=== PATIENT | female | born 1990 | race Caucasian/White ===

== ENCOUNTER 2019-08-24 08:33 | Emergency (ER) | payer OTHER ==
[~2019-08-24] VITALS: Ht 162.6 cm; Wt 76.1 kg
--- NOTE | 2019-08-24 08:53 | NUR ---
OUTPATIENT RECEPTIONIST: PT AMBULATORY TO ROOM FROM LOBBY
--- NOTE | 2019-08-24 09:16 | NUR ---
PT PRESENTS TO ED WITH C/O BILATERAL HIP PAIN X 3 DAYS, PT NOTES CHRONIC HIP PAIN D/T HX LYME DZ BUT PAIN HAS BEEN INTOLERABLE FOR LAST 3 DAYS. PT NOTES HX DVT/PE, TAKING ELIQUIS. PT DENIES CP/SOB, BILATERAL DORSALIS PEDIS PULSE IS 4/5 STRENGTH. PT'S SKIN TONE APPROP FOR ETHNICITY TO BILATERAL LE. PT A&OX4, NEURO INTACT. ALL MONITORS IN PLACE. CALL LIGHT IN REACH. PT CHANGED INTO GOWN, BLANKET PROVIDED. KELLY RIGGINS AT BEDSIDE FOR INITIAL ASSESSMENT.
[2019-08-24] MEDS ORDERED: KETOROLAC 30 MG/1 ML IM ONE (09:30)
[2019-08-24] MEDS ORDERED: HYDROmorphone 1 MG/ML, 1ML INJ IM ONE (09:30)
--- NOTE | 2019-08-24 09:40 | NUR ---
US IN PROGRESS, PT INSTRUCTED TO PROVIDE CLEAN CATCH UA WHEN COMPLETE.
[2019-08-24] MEDS ORDERED: KETOROLAC 30 MG/1 ML ONE (09:57)
[2019-08-24] MEDS ORDERED: HYDROmorphone 1 MG/ML, 1ML INJ ONE (09:57)
--- NOTE | 2019-08-24 10:02 | NUR ---
PT MEDICATED WITH DILAUDID PER EMAR, TOLERATED WELL. PT DECLINES TORADOL AT THIS TIME. US STILL IN PROGRESS. ALL MONITORS IN PLACE. PT NSR ON CLEAN OUT DRILLER HELPER, VSS.
--- NOTE | 2019-08-24 10:22 | NUR ---
US STILL IN PROG
--- NOTE | 2019-08-24 10:47 | NUR ---
PT UP TO BATHROOM WITH RN STANDBY, GAIT SLOW AND STEADY. PT REPORTS PAIN IMPROVED S/P DILAUDID. PT REATTACHED TO ALL MONITORS. PT A&O RESPS EVEN AND UNLABORED, NADN. PT AWAITING UA RESULTS AND HIP XRAY.
[2019-08-24 10:56] LABS: HCG UR SG 1.025 (1.003-1.030)
[2019-08-24 10:58] LABS: CULTURE INDICATED? YES; MICROSCOPIC INDICATED
[2019-08-24 12:44] VITALS: BP 103/65
[2019-08-24] MEDS ORDERED: OXYcodone/APAP 10/325MG TABLET ONE (12:51)
--- NOTE | 2019-08-24 12:53 | NUR ---
PT REPORTS BILATERL HIP PAIN LEVEL 6/10, NOT AT GOAL LEVEL. MD RIGGINS NOTIFIED. ORDER RECEIVED FOR PERCOCET. PT MEDICATED PER EMAR, TOLERATED WELL. AWAIIANDRES DC ORDERS AT THIS TIME.
[2019-08-24] MEDS ORDERED: OXYcodone/APAP 10/325MG TABLET PO ONE (13:00)
--- NOTE | 2019-08-24 13:12 | NUR ---
REPORT GIVEN TO DALE GILMAN.
== END 2019-08-24 13:26 | disposition home or self-care (01) ==
LOC: ED 09:00
DX: M25.551 Pain in right hip (principal); M25.552 Pain in left hip; A69.20 Lyme disease, unspecified; Z90.49 Acquired absence of other specified parts of digestive tract
CPT/HCPCS: 73523; 81001; 81025; 87086; 93970; 96372; 99285; J1170; J1885

== ENCOUNTER 2020-01-23 12:43 | Inpatient (IN) | payer OTHER ==
[~2020-01-23] VITALS: Ht 162.6 cm; Wt 72.3 kg
--- NOTE | 2020-01-23 13:11 | NUR ---
TASK RN NOTE: PT PRESENTS TO ED FROM HOME AFTER SZ TODAY. NO HX OF SZ. PER PT, SHE AWOKE NEXT TO THE COUCH AFTER SEEING A BRIGHT RED LIGHT, URINATED ON HERSELF AND HAD VOMITED. PT HAS HX OF MIGRAINE SANTOS'S AND CLOTTING DISORDER. ERMD AWARE THAT PT IS ESTABLISHED WITH A NEUROLOGIST. PT REPORTS SOME NAUSEA AND SANTOS AT THIS TIME. SMALL LAC EVIDENT TO RT SIDE OF TONGUE. ICE CHIPS AND SOCKS PROVIDED. PLAN FOR LABS AND CT. PT VERBALIZES AGREEMENT WITH PLAN.
[2020-01-23 13:21] LABS: BASOPHILS # (AUTO) 0.05 x10^3/uL (0-0.1); BASOPHILS % (AUTO) 1 % (0-1); EOSINOPHILS % (AUTO) 0 % (1-7); LYMPHOCYTES # (AUTO) 0.66 x10^3/uL (1-3.4); LYMPHOCYTES % (AUTO) 7 % (22-44); MD NO; MEAN PLATELET VOLUME 7.8 fL (7.4-10.4); MONOCYTES # (AUTO) 0.42 x10^3/uL (0.2-0.8); MONOCYTES % (AUTO) 5 % (2-9); NEUTROPHILS # (AUTO) 8.11 x10^3/uL (1.8-6.8); NEUTROPHILS % (AUTO) 88 % (42-75); PLATELET COUNT 199 x10^3/uL (130-400); RED BLOOD COUNT 4.47 x10^6/uL (3.82-5.3); RED CELL DISTRIBUTION WIDTH 14.5 % (9.6-15.2)
[2020-01-23 13:27] LABS: ALBUMIN 4.5 g/dL (3.4-5.0); ANION GAP 16 mmol/L (5-15); CALCIUM 9.3 mg/dL (8.5-10.1); CHLORIDE 101 mmol/L (98-107); CREATININE 1.05 mg/dL (0.55-1.02)
[2020-01-23] MEDS ORDERED: ONDANSETRON ODT 4 MG ONE (13:29)
--- NOTE | 2020-01-23 13:29 | NUR ---
REPORT TO KRISTINA EDMONDS.
[2020-01-23] MEDS ORDERED: LORazepam 1MG TABLET ONE (13:30)
[2020-01-23] MEDS ORDERED: LORazepam 1MG TABLET PO ONE (13:30)
[2020-01-23] MEDS ORDERED: ONDANSETRON ODT 8 MG PO ONE (13:30)
[2020-01-23] MEDS ORDERED: ONDANSETRON ODT 8 MG ONE (13:32)
--- NOTE | 2020-01-23 13:45 | NUR ---
PT ABLE TO AMBULATE STEADILY TO BATHROOM WITH ONE PERSON ASSIST. URINE SAMPLE PROVIDED. URINE WALKED TO LAB. PT GOING TO CT AT THIS TIME. PT MEDICATED PER EMAR.
--- NOTE | 2020-01-23 13:55 | NUR ---
PT BACK FROM CT.
[2020-01-23] MEDS ORDERED: POTASSIUM CHLORIDE 20 MEQ TAB.ER.PRT ONE ×2 (14:00→16:50)
[2020-01-23] MEDS ORDERED: POTASSIUM CHLORIDE 20 MEQ TAB.ER.PRT PO ONE ×2 (14:00→16:00)
--- NOTE | 2020-01-23 14:11 | NUR ---
PT MEDICATED WITH ORDERED MEDS. PT ON CARDIAC AND VITALS MONITORS. WILL CONTINUE TO MONITOR.
[2020-01-23 14:32] LABS: MICROSCOPIC INDICATED
--- NOTE | 2020-01-23 15:22 | NUR ---
PT TO BE ADMITTED. PT AWARE OF THIS. PT ASSISTED ONCE AGAIN TO BATHROOM WITH LESS ASSIST. BP IMPROVED. ERP IN TO SPEAK WITH PT. PT DOES NOT FEEL STRONG ENOUGH TO GO HOME, STATED SHE DOESN'T FEEL SHE CAN TRUST HER BODY .
--- NOTE | 2020-01-23 15:25 | NUR ---
PT GIVEN WARM BLANKETS, RESTING CALMLY.
[2020-01-23] MEDS ORDERED: LORazepam 2 MG/ML, 1ML IVPush PRN (16:00)
[2020-01-23] MEDS ORDERED: ONDANSETRON ODT 4 MG PO PRN (16:00)
[2020-01-23] MEDS ORDERED: HYDR50TA99 PO (16:26)
[2020-01-23] MEDS ORDERED: ONDA8TAB9 PO (16:26)
[2020-01-23] MEDS ORDERED: GALC120S INJ (16:26)
[2020-01-23] MEDS ORDERED: ALPR2TAB5 PO (16:26)
[2020-01-23] MEDS ORDERED: RIVA20TA PO (16:26)
[2020-01-23] MEDS ORDERED: PROP40TA PO (16:26)
[2020-01-23] MEDS ORDERED: BUSP30TA PO (16:26)
--- NOTE | 2020-01-23 16:40 | NUR ---
PT ASSISTTED TO BATHROOM BY TECH, GIVEN MORE BLANKETS. PT C/O ABOUT BP CUFF BEING TOO TIGHT. TECH ASSISTED PT TO COMFORT. WILL CONTINUE TO MONITOR.
[2020-01-23] MEDS ORDERED: RIVAROXABAN 20 MG TABLET ONE (16:51)
[2020-01-23] MEDS ORDERED: ACETAMINOPHEN 325 MG TABLET ONE (16:51)
[2020-01-23] MEDS ORDERED: OXYcodone/APAP 5/325MG TABLET ONE (16:59)
[2020-01-23] MEDS ORDERED: RIVAROXABAN 20 MG TABLET PO SCH (17:00)
--- NOTE | 2020-01-23 17:06 | NUR ---
PT IN MRI AT THIS TIME, PT STATED SHE IS UNABLE TO DO MRI DUE TO MUSCLE PAIN. CALLED HOSPITALIST, INFORMED THEM PT C/O MUSCLE SORENESS, ONE TIME PAIN MED ORDERED. POTASSIUM ORDER CLARIFIED.
--- NOTE | 2020-01-23 17:25 | NUR ---
PT BACK FROM MRI
[2020-01-23] MEDS ORDERED: OXYcodone/APAP 5/325MG TABLET PO ONE (17:30)
--- NOTE | 2020-01-23 17:45 | NUR ---
REPORT TO BRYN ACEVEDO
--- NOTE | 2020-01-23 17:57 | NUR ---
PT MEDICATED WITH ORDERED MEDS FROM EMAR.
[2020-01-23] MEDS: SODIUM CHLORIDE 0.9% 1,000 ML IV SCH (18:19)
[2020-01-23 20:24] VITALS: BP 128/88
[2020-01-23] MEDS ORDERED: METOCLOPRAMIDE 5 MG/ML, 2ML IVPush ONE (20:30)
[2020-01-23] MEDS ORDERED: DIPHENHYDRAMINE 50 MG/ML, 1ML IVPush ONE (20:30)
[2020-01-23] MEDS ORDERED: LORazepam 0.5MG TABLET PO ONE ×2 (20:30→21:00)
[2020-01-23] MEDS ORDERED: LORazepam 2 MG/ML, 1ML IVPush ONE (21:00)
[2020-01-23] MEDS: ONDANSETRON 2MG/ML, 2ML IVPush PRN (22:03)
[2020-01-23] MEDS ORDERED: SUMATRIPTAN 50 MG TABLET PO PRN (22:30)
[2020-01-23] MEDS ORDERED: KETOROLAC 30 MG/1 ML IVPush PRN (23:00)
[2020-01-23] MEDS ORDERED: PROMETHAZINE 25 MG/ML, 1ML IM PRN (23:00)
[2020-01-24] MEDS: ACETAMINOPHEN 325 MG TABLET PO PRN ×2 (02:15→09:42)
[2020-01-24 02:21] VITALS: BP 121/82
[2020-01-24 06:05] LABS: BASOPHILS # (AUTO) 0.03 x10^3/uL (0-0.1); BASOPHILS % (AUTO) 1 % (0-1); EOSINOPHILS # (AUTO) 0.01 x10^3/uL (0-0.4); EOSINOPHILS % (AUTO) 0 % (1-7); LYMPHOCYTES # (AUTO) 1.61 x10^3/uL (1-3.4); LYMPHOCYTES % (AUTO) 23 % (22-44); MD NO; MEAN CORPUSCULAR HGB CONC 33.7 g/dL (32.4-35.8); MEAN CORPUSCULAR VOLUME 101.2 fL (80-100); MEAN PLATELET VOLUME 8.1 fL (7.4-10.4); MONOCYTES # (AUTO) 0.62 x10^3/uL (0.2-0.8); MONOCYTES % (AUTO) 9 % (2-9); NEUTROPHILS # (AUTO) 4.69 x10^3/uL (1.8-6.8); NEUTROPHILS % (AUTO) 67 % (42-75); PLATELET COUNT 205 x10^3/uL (130-400); RED BLOOD COUNT 4.54 x10^6/uL (3.82-5.3); RED CELL DISTRIBUTION WIDTH 14.5 % (9.6-15.2)
[2020-01-24 06:07] LABS: ANION GAP 15 mmol/L (5-15); CHLORIDE 102 mmol/L (98-107); CREATININE 0.94 mg/dL (0.55-1.02)
[2020-01-24] MEDS: ONDANSETRON 2MG/ML, 2ML IVPush PRN (06:22)
[2020-01-24 06:51] VITALS: BP 118/82
[2020-01-24] MEDS ORDERED: LORazepam 2 MG/ML, 1ML IVPush SCH (08:10)
[2020-01-24] MEDS ORDERED: LORazepam 2 MG/ML, 1ML IVPush ONE (08:30)
[2020-01-24] MEDS ORDERED: GADOTERATE 7.5 MMOL/15 ML SYR ONE (08:44)
[2020-01-24] MEDS ORDERED: POTASSIUM CHLORIDE 20 MEQ TAB.ER.PRT PO ONE (09:00)
[2020-01-24] MEDS: SODIUM CHLORIDE 0.9% 1,000 ML IV SCH (09:41)
== END 2020-01-24 11:23 | disposition home or self-care (01) | DRG 101 ==
LOC: ED 13:21 → EDIP 15:59 → 4EST 18:08 → DCLOUNGE 01-24 11:18
PROVIDERS: ADMIT Hospitalist; ATTEND Hospitalist
DX: G40.409 Other generalized epilepsy and epileptic syndromes, not intractable, without status epilepticus (principal); D68.51 Activated protein C resistance; G43.909 Migraine, unspecified, not intractable, without status migrainosus; I10 Essential (primary) hypertension; E87.6 Hypokalemia; G47.00 Insomnia, unspecified; Z90.49 Acquired absence of other specified parts of digestive tract; Z82.3 Family history of stroke; Z83.3 Family history of diabetes mellitus; Z82.49 Family history of ischemic heart disease and other diseases of the circulatory system; Z79.899 Other long term (current) drug therapy
CPT/HCPCS: 36415; 70450; 70551; 70552; 80048; 81001; 82040; 83605; 83735; 84703; 85025; 87086; 93005; 99285; G0378; J1885; J2405; J2550; Q0162; A9575; J1200; J2060; J2765; J7030

== ENCOUNTER 2020-09-26 08:14 | Outpatient (CLI) | payer OTHER ==
[~2020-09-26 08:14] MED LIST: ALPR2TAB5 PO; BUSP30TA PO; GALC120S INJ; HYDR50TA99 PO; ONDA8TAB9 PO; PROP40TA PO; RIVA20TA PO
[2020-09-26 10:18] LABS: CHLORIDE 107 mmol/L (98-107)
[2020-09-26 10:44] LABS: CHOL/HDL RATIO 3.4
[2020-09-26 10:48] LABS: ALANINE AMINOTRANSFERASE 32 U/L (12-78); ALBUMIN 4.2 g/dL (3.4-5.0); ALKALINE PHOSPHATASE 66 U/L (45-117); ANION GAP 5 mmol/L (5-15); BILIRUBIN,TOTAL 0.5 mg/dL (0.2-1.0); CALCIUM 8.8 mg/dL (8.5-10.1); CREATININE 0.91 mg/dL (0.55-1.02); FREE T4 (FREE THYROXINE) 1.28 ng/dL (0.76-1.46); TOTAL PROTEIN 7.5 g/dL (6.4-8.2)
== END 2020-09-26 23:59 | disposition home or self-care (01) ==
LOC: CARD 08:14
PROVIDERS: ATTEND Registered Nurse
DX: G40.409 Other generalized epilepsy and epileptic syndromes, not intractable, without status epilepticus (principal); E78.5 Hyperlipidemia, unspecified; E55.9 Vitamin D deficiency, unspecified; G44.001 Cluster headache syndrome, unspecified, intractable
CPT/HCPCS: 36415; 80053; 80061; 80164; 82306; 84100; 84439; 84443; 85613; 85651; 85670; 85705; 85732; 86038; 86235; 86430; 86592; 95819

== ENCOUNTER 2021-02-10 08:36 | Emergency (ER) | payer OTHER ==
[~2021-02-10] VITALS: Ht 162.6 cm; Wt 74.4 kg
[2021-02-10] MEDS ORDERED: SODIUM CHLORIDE FLUSH 10ML SYR IVF ONE (09:30)
[2021-02-10] MEDS ORDERED: MORPHINE SULFATE 4 MG/ML, 1ML ONE ×2 (09:36→12:03)
[2021-02-10] MEDS: MORPHINE SULFATE 4 MG/ML, 1ML IVPush PRN ×2 (10:37→12:06)
--- NOTE | 2021-02-10 11:00 | NUR ---
REPORT GIVEN TO BONNIE ACEVEDO.
--- NOTE | 2021-02-10 11:01 | NUR ---
RECEIVED REPORT FROM AIDEN ACEVEDO. ASSUMING CARE AT THIS TIME.
--- NOTE | 2021-02-10 12:20 | NUR ---
ERMD AT BEDSIDE TO UPDATE PT ON POC.
[2021-02-10 12:26] VITALS: BP 107/71
== END 2021-02-10 12:41 | disposition home or self-care (01) ==
LOC: ED 09:18
DX: M79.671 Pain in right foot (principal); M79.672 Pain in left foot; D68.51 Activated protein C resistance; I10 Essential (primary) hypertension; Z86.711 Personal history of pulmonary embolism
CPT/HCPCS: 73630; 93970; 96374; 96376; 99284; J2270